=== PATIENT | male | born 1955 | race Hispanic/Latino ===

== ENCOUNTER 2017-06-24 13:17 | Emergency (ER) | payer OTHER ==
[2017-06-24 13:28] VITALS: BP 128/82; PULSE 78; RESP 18; TEMP 98.4; O2SAT 97
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
--- NOTE | 2017-06-24 14:33 | RAD ---
PROCEDURE: Right Foot Radiographs. HISTORY: injury pain. COMPARISON: None available. FINDINGS: BONES: No acute displaced fracture. Small calcaneal enthesophyte and heel spur. JOINTS: No dislocation. SOFT TISSUES: Unremarkable. No evidence of radiopaque foreign body. OTHER FINDINGS: Dense vascular calcifications. IMPRESSION: No acute displaced fracture, dislocation, or significant joint effusion identified. If symptoms persist, or if there is continued clinical concern, x-ray follow-up in 7-10 days should be considered.
--- NOTE | 2017-06-24 14:34 | RAD ---
PROCEDURE: Radiographs of the right tibia and fibula. HISTORY: injury to the right leg, pain to medial knee/tib/f COMPARISON: None available. TECHNIQUE: Frontal and lateral views obtained. FINDINGS: BONES: No acute displaced fracture. JOINT SPACES: No dislocation. OTHER FINDINGS: Soft tissues appear unremarkable. Vascular calcifications. No evidence of radiopaque foreign body. IMPRESSION: No acute displaced fracture, dislocation, or significant joint effusion identified. If symptoms persist, or if there is continued clinical concern, x-ray follow-up in 7-10 days should be considered.
--- NOTE | 2017-06-24 14:34 | RAD ---
PROCEDURE: Right Ankle Radiographs. HISTORY: ankle injury COMPARISON: None FINDINGS: BONES: No acute displaced fracture. Small calcaneal enthesophyte and heel spur. JOINTS: No dislocation. SOFT TISSUES: Mild soft tissue swelling. Vascular calcifications. No evidence of radiopaque foreign body. OTHER FINDINGS: None. IMPRESSION: Mild soft tissue swelling. No acute displaced fracture, dislocation, or significant joint effusion identified. If symptoms persist or if there is clinical concern, x-ray follow-up in 7-10 days should be considered.
== END 2017-06-24 15:11 | disposition home or self-care (01) ==
LOC: C.ER 13:17
DX: S90.31XA Contusion of right foot, initial encounter (principal); W22.8XXA Striking against or struck by other objects, initial encounter

== ENCOUNTER 2018-08-27 11:04 | Emergency (ER) | payer OTHER ==
[2018-08-27 11:12] VITALS: O2SAT 98
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
--- NOTE | 2018-08-27 13:19 | RAD ---
Three views, left foot Three views left ankle Three views left tibia fibula Indication: Ankle injury, pain, and swelling Comparison: None available Findings: Marked soft tissue swelling about the ankle. Displaced medial malleolar fracture. The remainder the visualized osseous structures appear intact. Degenerative changes. Heel spur and calcaneal enthesophyte. Vascular calcifications. No evidence of radiopaque foreign body. Impression: Marked soft tissue swelling about the ankle. Displaced medial malleolar fracture. CT may be considered for further evaluation if indicated.
--- NOTE | 2018-08-27 13:44 | C.PDOC ---
Time Seen by Provider: 08/27/18 11:39 Chief Complaint (Nursing): Lower Extremity Problem/Injury Past Medical History Vital Signs: Last Vital Signs Temp 98.1 F 08/27/18 11:09 Pulse 85 08/27/18 11:09 Resp 16 08/27/18 11:09 BP 129/88 08/27/18 11:09 Pulse Ox 98 08/27/18 11:09 Family History: States: Unknown Family Hx - Social History Hx Alcohol Use: Yes Hx Substance Use: No - Immunization History Hx Tetanus Toxoid Vaccination: No Hx Influenza Vaccination: No Hx Pneumococcal Vaccination: No ED Course And Treatment O2 Sat by Pulse Oximetry: 98 Disposition - Disposition
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
[2018-08-27 14:02] VITALS: BP 146/85; PULSE 72; RESP 20; TEMP 98.9
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
--- NOTE | 2018-08-27 16:00 | CT ---
Date of service: 08/27/2018 PROCEDURE: CT of the left ankle without contrast HISTORY: ankle fracture COMPARISON: Comparison is made with the previous x-ray of left ankle done on the same day. TECHNIQUE: Axial and reconstructed coronal and sagittal CT images of the left ankle were obtained without IV contrast administration. 3D reformatted images of the left ankle were also obtained. Total exam DLP: 316.01 FINDINGS: There is acute slightly displaced fracture at the medial malleolus extending to anterior aspect of the articular surface of the distal left tibia. There are bony fragments seen at the left lateral malleolus likely represent acute displaced fracture. There is a well corticated ossicle adjacent to the lateral malleolus may represent old fracture. Moderate soft tissue swelling noted at the medial and lateral malleolus. No evidence of dislocation at left ankle. Small left ankle joint effusion is also noted. There is small posterior calcaneal enthesophytes at Achillis tendon insertion. There is calcaneus plantar spur noted. Moderate osteoarthritic changes of the left ankle joint are also noted. IMPRESSION: Acute mildly displaced left medial malleolus fracture. Bony fragments noted adjacent to the lateral malleolus suggestive of acute fracture. The possibility of old fracture also cannot be excluded at the lateral malleolus. Additional findings as discussed above.
== END 2018-08-27 15:52 | disposition home or self-care (01) ==
LOC: C.ER 11:04
DX: S82.52XA Displaced fracture of medial malleolus of left tibia, initial encounter for closed fracture (principal); V23.4XXA Motorcycle driver injured in collision with car, pick-up truck or van in traffic accident, initial encounter; Y92.410 Unspecified street and highway as the place of occurrence of the external cause
CPT/HCPCS: 29515; 73590; 73610; 73630; 73700; 97116; 97161; 99284; G8978; G8979; G8980

== ENCOUNTER 2018-09-02 07:54 | Day surgery (SDC) | payer OTHER ==
[2018-08-30 14:06] VITALS: BMI 25.8
[2018-09-02 08:37] LABS: BASO % 0.5 % (0.0-2.0); EOS # 0.3 K/uL (0.0-0.7); EOS % 3.5 % (0.0-4.0); HEMOGLOBIN 13.6 g/dL (12.0-18.0); LYMPH # 1.4 K/uL (1.0-4.3); LYMPH % 18.6 % (20.0-40.0); MEAN CELL VOLUME 96.9 fL (80.0-94.0); MEAN CORPUSCULAR HEMOGLOBIN 34.3 pg (27.0-31.0); MEAN CORPUSCULAR HGB CONC 35.4 g/dL (33.0-37.0); MEAN PLATELET VOLUME 7.7 fL (7.2-11.7); MONO # 0.5 K/uL (0.0-0.8); MONO % 7.1 % (0.0-10.0); NEUT # 5.4 K/uL (1.8-7.0); NEUT % 70.3 % (50.0-75.0); RBC 3.98 Mil/uL (4.40-5.90); RED CELL DISTRIBUTION WIDTH 12.6 % (11.5-14.5); WHITE BLOOD COUNT 7.6 K/uL (4.8-10.8)
[2018-09-02 08:46] LABS: INR 1.1; PROTHROMBIN TIME 11.8 SECONDS (9.7-12.2)
[2018-09-02 08:52] LABS: ALB/GLOB RATIO 1.4 (1.0-2.1); ALBUMIN 4.3 g/dL (3.5-5.0); ALT/SGPT 37 U/L (21-72); AST/SGOT 41 U/L (17-59); BLOOD UREA NITROGEN 19 mg/dL (9-20); CALCIUM 9.7 mg/dl (8.6-10.4); GFR NON-AFRICAN AMERICAN > 60
[2018-09-02] MEDS ORDERED: Bupivacaine 0.25% 20 ML INJ IJ ONE ×2 (10:25→13:52)
[2018-09-02] MEDS ORDERED: ceFAZolin IV 1 gm in Dextrose 1 GM/50 ML BAG IVPB ONE ×2 (10:25→10:44)
[2018-09-02] MEDS ORDERED: Lidocaine 2% MPF (5 ml) Inj ONE ×2 (10:25)
[2018-09-02] MEDS ORDERED: Midazolam 2 MG/2 ML VIAL ONE (10:35)
[2018-09-02] MEDS ORDERED: Propofol 10 mg/ml Inj (20 ML) ONE (10:35)
[2018-09-02] MEDS ORDERED: ePHEDrine 50 mg/ml Inj ONE (11:03)
[2018-09-02] MEDS ORDERED: Lidocaine Hydrochloride 5 ML INJ ONE (13:15)
[2018-09-02] MEDS ORDERED: Morphine 4 MG/ML VIAL ONE (13:24)
--- NOTE | 2018-09-02 13:47 | PCM.SURG1 ---
Surgeon's Initial Post Op Note - Surgeon's Notes Surgeon: Dr. Josefa Jauregui, JUAN JOSÉM Owner Manager: Angelique Grimaldo, PGY-3; Angelique Georges, PGY-2; Gomez Robledo, PGY-2 Type of Anesthesia: General LMA, Local Anesthesia Administered By: Dr. Antoine MD Pre-Operative Diagnosis: Left ankle: 1) Medial malleolus closed displaced fracture 2) Lateral malleolus fracture fragment 3) Calcaneal-fibular ligament tear Operative Findings: See dictation Post-Operative Diagnosis: Left ankle: 1) Medial malleolus closed, displaced fracture 2) Anterior subluxed posterior tibial tendon with partial tear of flexor retinaculum. 3) Lateral malleolus fracture fragment 4) Calcaneal-fibular ligament tear Operation Performed: Left ankle: 1) Medial malleolus open reduction with internal fixation 2) Tibial groove deepening with subluxation repair of posterior tibial tendon 3) Lateral malleolus excision of fracture fragment 4) Calcaneal-fibular ligament repair Specimen/Specimens Removed: None Estimated Blood Loss: EBL {In ML}: 15 Blood Products Given: N/A Drains Used: No Drains Post-Op Condition: Good Date of Surgery/Procedure: 09/02/18 Time of Surgery/Procedure: 13:49
[2018-09-02] MEDS ORDERED: Oxycodone/Acetaminophen 5/325 mg Tab PO PRN (13:49)
[2018-09-02] MEDS: HYDROmorphone 0.5 mg/0.5 ml ISec IVP PRN ×2 (13:50→14:10)
[2018-09-02] MEDS ORDERED: HYDROmorphone 0.5 mg/0.5 ml ISec ONE (13:52)
--- NOTE | 2018-09-02 14:12 | PCM.ANESB2 ---
Popliteal Nerve Block - Popliteal Nerve Block Date of Procedure: 09/02/18 Anesthesiologist: Nila Pre-Procedure Diagnosis: s/p ORIF of left bimalleolar ankle fracture Post-Procedure Diagnosis: same Procedure Performed: Popliteal Nerve Block Left - Procedure Popliteal Nerve Block: This procedure was explained to the patient that it is for post-operative pain management. Consent was obtained after a thorough discussion with the patient regarding the benefits and possible complications of local anesthetic block of the sciatic nerve at the popliteal level. The patient supine in PACU with monitors applied. Time-out was held with the PACU nurse to confirm the appropriate block. After applying oxygen by nasal cannula, patient's operative leg was gently raised and supported and the groove in between the biceps femoris and vastus lateralis muscles was carefully palpated. The skin approximately 8cm above the popliteal crease was then marked. The ultrasound transducer was then applied to the posterior thigh approximately 8cm above the popliteal crease in the transverse plane and the sciatic nerve before its division was visualized lateral to the popliteal artery and in between the bicep femoris and semimembranosus/semitendinosus muscles. After identification, the lateral portion of the thigh was prepped with chloraprep and 2mL of Lidocaine 1% was injected subcutaneously for topical anesthesia. At this point, a # 21 gauge Stimuplex insulated 4 inch needle was inserted into pre-marked area and advanced in a perpendicular direction. The needle was inserted above the ultrasound transducer in-plane towards the sciatic nerve in a [id number] direction. Needle advancement was performed carefully under direct ultrasound visualization. After repeated negative aspiration, 2cc of 0.25% Bupivacaine was injected and this was flowed with 18cc of 0.25% Bupivacaine. Under ultrasound guidance the local anesthetics were observed surrounding sciatic nerve . The needle was removed intact and sterile dressing was applied. The patient tolerated the popliteal nerve block well with stable vital signs.
--- NOTE | 2018-09-02 15:29 | RAD ---
Date of service: 09/02/2018 PROCEDURE: Intraoperative Fluoroscopy. HISTORY: LEFT ANKLE fracture FINDINGS: Fluoroscopic assistance was provided for left ankle open reduction internal fixation. Please refer to the operative report from KADE Ramos.
[2018-09-02 16:29] VITALS: O2SAT 100
[2018-09-02 18:07] VITALS: BP 138/70; PULSE 66; RESP 18; TEMP 97
[2018-09-03] MEDS ORDERED: Metoprolol Succinate 25 mg XL Tab PO SCH (10:00)
--- NOTE | 2018-09-05 02:10 | OP ---
PROCEDURE DATE: 09/02/2018 PRIMARY SURGEON: Josefa Jauregui DPM PRIMARY FOURDRINIER TENDER: Alix Grimaldo, PGY-3 SECONDARY FOURDRINIER TENDER: Duran Georges, PGY-2, and Joss Robledo, PGY-2 ANESTHESIOLOGIST: Dr. Schultz. ANESTHESIA TYPE: General LMA with local. PREOPERATIVE DIAGNOSES: 1. Left ankle medial malleolus closed displaced fracture. 2. Left ankle lateral malleolus fracture fragment. 3. Left ankle calcaneofibular ligament tear. POSTOPERATIVE DIAGNOSES: 1. Left ankle medial malleolus closed displaced fracture. 2. Left ankle anteriorly subluxed posterior tibial tendon with partial tear of flexor retinaculum. 3. Left ankle lateral malleolus fracture fragment. 4. Left ankle calcaneofibular ligament tear. PROCEDURES PERFORMED: 1. Left ankle medial malleolus open reduction with internal fixation. 2. Left ankle tibial tendon groove deepening with subluxation repair of posterior tibial tendon. 3. Left ankle lateral malleolus excision of fracture fragment. 4. Left ankle calcaneofibular ligament repair with bone anchor. INDICATIONS: The patient is a 63-year-old male with the above stated diagnoses. The patient has received this injury secondary to trauma and is now in need of surgical intervention. The patient signed the surgical consent after careful explanation of the risks, benefits, complications and potential alternatives to the proposed surgical procedure. No guarantees were either given or implied. All the patient's questions were answered to his satisfaction. PREPARATION: The patient's n.p.o. status was confirmed prior to bringing the patient to the operating room. The patient was brought into the operating room and placed on the operating room table in supine position. A well-padded pneumatic tourniquet was applied at the level of the left mid thigh, which was set at 350 mmHg to be inflated once the procedure began. Once general anesthesia was confirmed to have been achieved, the patient received a total of 20 mL of 0.5% Marcaine plain to 1% lidocaine plain in a local block type fashion to the left ankle. Once anesthesia was confirmed to have been achieved, the patient's left foot and ankle were then prepped and draped in the usual sterile manner. Foot was exsanguinated, tourniquet was inflated and the procedures began. DESCRIPTION OF PROCEDURE: PROCEDURE #1: Left ankle medial malleolus open reduction with internal fixation: Attention was then directed to the medial aspect of the patient's ankle where medial malleolus and distal medial tibial anatomical margins were then marked under fluoroscopy. At this time, using a #15 blade, a linear longitudinal incision of approximately 4 cm in length was oriented from just proximal or medial surface of the tibia. This incision was extended down to the subcutaneous tissue with care being taken to identify, avoid and retract all vital neurovascular structures. All bleeders were cauterized and ligated as needed and encountered. At this time, tibial periosteum was visualized and it was noted that there was disruption consistent with loss of integrity and support, consistent with displaced fracture. A linear longitudinal periosteal incision was made overlying this area with care being taken to preserve deltoid ligament attachments. At that time, displaced medial malleolus with interpositional hematoma was visualized. Interpositional hematoma was flushed with copious amount of sterile saline and interposing soft tissue was excised and passed from the operative field. At this time, using manual manipulation, medial malleolus fracture was then reduced and temporarily fixated. At this time, with medial malleolus in correct anatomical position, which was assessed under fluoroscopy, incidental finding of subluxed posterior tibial tendon was encountered. Posterior tibial tendon was evaluated and there was noted to be no possible tearing of fibers, though "immediately proximal" 3 cm of tendinous body to the medial malleolus was subluxed grossly anteriorly. Inversion/eversion range of motion was assessed and there was found to be moderately decreased tension and tracking strength of the posterior tibial tendon in the subluxed position. It was also noted that there was a 1 cm partial longitudinal tear of the inferior aspect of the partial retinaculum consistent with traumatic soft tissue injury from inciting traumatic events that led to the gross fracture presentation of the patient. At this time, intraoperative decision was made that upon final fixation of the medial malleolus, posterior tibial tendon would need to be returned to corrected retromalleolar position to restore adequate level on a full strength in the posterior tibial tendon groove. In the interim, posterior tibial tendon was then retracted posteriorly atraumatically, so medial malleolar fixation could proceed. At this time, parallel repair of 0.045 inch K-wires was then driven from anterior aspect of the medial malleolus to proximal tibial body. Temporary reduction was assessed under fluoroscopy and was found to be adequate. At this time following standard AO principles and technique, a pair of Synthes 4 partially threaded screws was placed along the course of these parallel guidewires and compressed to achieve adequate fixation which was stressed under fluoroscopy and found to be stable. Surgical site was then flushed with copious amounts of sterile saline. Temporary fixation was excised. At this time under fluoroscopy, ankle joint syndesmosis was then stressed and found to be adequate, noting with the stress that there was no indicated ankle syndesmotic injury with gross insufficiency at this time. With noted posterior tibial tendon subluxation, this led him to secondary procedure. PROCEDURE #2: Left ankle posterior tibial tendon groove deepening with repair of posterior tibial tendon subluxation and flexor retinacular repair. Attention was then directed to the previously noted posterior tibial tendon subluxation. Flexor retinaculum at the level of the partial tear was incised using sharp dissection to allow adequate visualization of the posterior tibial tendon body. Attempt for soft tissue reapproximation utilizing the flexor retinaculum was found to be inadequate to reapproximate the posterior tibial tendon in corrected position to restore adequate tension and function. At this time, intraoperative decision was made to utilize groove deepening of posterior tibial tendon groove. At this time under fluoroscopy, a 0.045 inch K-wire was then driven inferior to the cortical surface of the posterior tibial tendon groove which was noted to be shallow. At this time, osteochondral surface of the posterior tibial tendon groove was assessed and found to be adequate though shallow, likely contributing to noted subluxation of the traumatic stress. With corrected guidewire in position, the staged attenuation along the K-wire was used with subsequent 2.5 drill bit, then 3.5 mm drill bit with osteochondral surface left intact, then drill bit and K-wire were then removed, and utilizing bone tamps, osteochondral groove was then deepened while preserving the osteochondral surface. With this deficit now filled and stable, posterior tibial tendon was placed in now deepened groove and was found to be maintained in this position on stress activity of the tendon and normalized range of motion. Surgical site was then flushed with copious amounts of sterile saline. Flexor retinaculum was reapproximated repairing partial tear and side portion using 2-0 Vicryl in a subcuticular suture-type fashion. Once again, posterior tibial tendon range of motion was then stressed and corrected, position was found to be maintained. At this time, surgical site incision was reapproximated in subcutaneous tissue layer using 4-0 Vicryl, skin was reapproximated using 4-0 Monocryl in a running subcuticular suture-type fashion. PROCEDURE #3: Left ankle lateral malleolus incision of fracture fragment: Attention was then directed to the lateral aspect of the patient's left ankle, where an approximately 3 cm curvilinear incision was made overlying the lateral malleolus. Using #15 blade, this incision was extended down to the subcutaneous tissue layer with care being taken to identify, avoid and retract all vital neurovascular structures. All bleeders were cauterized and ligated as needed. At this time, under fluoroscopic guidance, anterior drawer sign was performed, it was found to be stable and adequate. Stress inversion test was performed and was found to be unstable with noted calcaneofibular ligament failure. At this time, periosteal and extracapsular incision was made overlying the course of the calcaneofibular ligament. The periosteal structure was intact anteriorly and posteriorly thus fully visualizing distal tip of the medial malleolus. It should be noted at this time that there was a noted loose osseous fragment at the distal tip of the lateral malleolus in line with the peroneal brevis subchondral groove. This loose osseous fragment was excised and its attachment at the calcaneofibular ligament was released. Osseous fragment size was measured and was found to be around 1.5 x 2 cm. Surgical site was then flushed with copious amounts of sterile saline. Under fluoroscopic evaluation, no minor osseous fragments were evaluated, nor visualized in the surgical field, with the peroneal tendons protected and calcaneofibular ligament origin now free, this led him to the subsequent procedure. PROCEDURE #4: Left ankle calcaneofibular ligament repair with bone anchor. Through the surgical incision, attention was directed to the distal aspect of the lateral malleolus with moderate size of bone loss due to the avulsed fracture fragment. Intraoperative decision was made that a bone anchor would be utilized to correctly reapproximate and stabilize the calcaneofibular ligament. Due to the size of the fragment, it was noted that an Arthrex 3 mm bone anchor would need to be utilized to avoid implant failure due to pull-out. At this time, utilizing Arthrex 2.5 drill bit, the origin point of the calcaneofibular ligament was drilled. At this time, 3-mm anchor was then kept in place and utilizing the anchor ends, calcaneofibular ligament was tensioned and reapproximated. The surgical site was then flushed with copious amounts of sterile saline. Stress inversion test was re-performed and calcaneofibular ligament stability was found to be adequate with the reapproximation with bone anchor. Surgical site was once gain flushed with copious amounts of sterile saline. Subcutaneous tissues were reapproximated using 4-0 Vicryl. Skin was reapproximated using 4-0 Monocryl. At this time, the patient received a local saphenous of 10 mL of 0.25% Marcaine plain in a local block type fashion. Surgical sites were then dressed with Steri-Strips, Xeroform, 4 x 4 gauze, Kerlix and Gabriel. The patient was then placed in a well-padded AO type splint and the patient received a postoperative popliteal block. The attending was present for the entirety of the surgical course. POSTOPERATIVE CONDITION: The patient tolerated the anesthesia and procedures well and was escorted to the recovery room with vital signs stable and neurovascular status intact to the patient's left foot and ankle. The patient had no complaints or complications. The patient will follow up with Dr. Jauregui on an outpatient basis. Alix Grimaldo DPM Josefa Jauregui DPM GER
== END 2018-09-02 18:10 | disposition home or self-care (01) ==
LOC: C.SDS 07:54
PROVIDERS: ATTEND Podiatrist Foot & Ankle Surgery
DX: S82.52XA Displaced fracture of medial malleolus of left tibia, initial encounter for closed fracture (principal); S82.62XA Displaced fracture of lateral malleolus of left fibula, initial encounter for closed fracture; S93.439A Sprain of tibiofibular ligament of unspecified ankle, initial encounter
CPT/HCPCS: 27658; 27695; 27766; 80053; 85025; 85610; 85730; 97116; 97161; G8978; G8979; G8980; J0690; J1170; J2001; J2250; J2270; J2405; J2704; J2765; J3010